=== PATIENT | female | born 1980 | race Caucasian/White ===

== ENCOUNTER 2020-08-18 12:13 | Observation (INO) | payer OTHER ==
[~2020-08-18] VITALS: Ht 174 cm; Wt 93.0 kg
[~2020-08-18 12:13] MED LIST: DSS100 PO; IBUP-2071 PO; PREN-114 PO
[2020-10-22 15:59] VITALS: BP 123/68
== END 2020-10-22 15:20 | disposition home or self-care (01) ==
LOC: 4S 10-22 12:35
PROVIDERS: ADMIT Obstetrics & Gynecology; ATTEND Obstetrics & Gynecology
DX: O46.93 Antepartum hemorrhage, unspecified, third trimester (principal); Z3A.37 37 weeks gestation of pregnancy
CPT/HCPCS: 59025; 81001; 99219

== ENCOUNTER 2020-10-23 20:45 | Observation (INO) | payer OTHER ==
[~2020-10-23] VITALS: Ht 165.1 cm; Wt 94.8 kg
[2020-10-23 21:47] VITALS: BP 125/61
== END 2020-10-23 23:21 | disposition home or self-care (01) ==
LOC: 4S 20:45
PROVIDERS: ADMIT Student in an Organized Health Care Education/Training Program; ATTEND Student in an Organized Health Care Education/Training Program
DX: O42.92 Full-term premature rupture of membranes, unspecified as to length of time between rupture and onset of labor (principal); Z3A.37 37 weeks gestation of pregnancy
CPT/HCPCS: 59025; 81001; 96360; 96361; 99219

== ENCOUNTER 2020-10-27 10:55 | Inpatient (IN) | payer OTHER ==
[~2020-10-27] VITALS: Ht 165.1 cm; Wt 93.4 kg
[~2020-10-27 10:55] MED LIST changes: -DSS100 PO; -IBUP-2071 PO
[2020-10-27] MEDS ORDERED: EPHEDrine SULFATE 50 MG/ML VIAL IM ONE ×2 (12:00)
[2020-10-27] MEDS ORDERED: OXYTOCIN 10 UNITS/ML VIAL IM ONE ×2 (12:00)
[2020-10-27] MEDS ORDERED: 0.9% SODIUM CHLORIDE 10 ML VIAL IVP ONE ×2 (12:00)
[2020-10-27] MEDS ORDERED: CefoTEtan DISODIUM 1 GM/VIAL IVP ONE (12:00)
[2020-10-27] MEDS ORDERED: RINGERS SOLUTION,LACTATED 1,000 ML IV SCH (12:45)
[2020-10-27] MEDS ORDERED: PREN-134 PO (14:44)
[2020-10-27] MEDS ORDERED: CITRIC ACID/SODIUM CITRATE 30 ML SOLUTION UDCUP PO ONE (14:45)
[2020-10-27] MEDS ORDERED: RINGERS SOLUTION,LACTATED 1,000 ML IV ONE (14:45)
[2020-10-27] MEDS ORDERED: METOCLOPRAMIDE HCL 5 MG/ML 2 ML VIAL IVP ONE (14:45)
[2020-10-27 14:46] VITALS: BP 116/65
[2020-10-27 15:43] LABS: BASOPHILS % (AUTO) 0.5 % (0.0-2.0); EOSINOPHILS % (AUTO) 1.6 % (1.0-6.0); HEMATOCRIT 35.2 % (36-46); HEMOGLOBIN 11.7 g/dL (12.0-16.0); LYMPHOCYTES # (AUTO) 1.3 K/uL (1.0-4.8); LYMPHOCYTES % (AUTO) 16.9 % (22.0-44.0); MEAN CORPUSCULAR HEMOGLOBIN 29.1 pg (26.0-34.0); MEAN CORPUSCULAR HGB CONC 33.3 G/dL (31.0-37.0); MEAN CORPUSCULAR VOLUME 87 fL (80-100); MONOCYTES # (AUTO) 0.4 K/uL (0.1-1.0); MONOCYTES % (AUTO) 5.8 % (2.0-9.0); NEUTROPHILS # (AUTO) 5.7 K/uL (1.8-7.7); NEUTROPHILS % (AUTO) 75.2 % (40.0-70.0); PLATELET COUNT (AUTO)-OB 162 K/uL (150-450); RED BLOOD CELL COUNT(AUTO) 4.03 MIL/uL (4.00-5.20); RED CELL DISTRIBUTION WIDTH 14.5 % (11.5-14.5)
[2020-10-27 15:43] LABS: COVID AG,FIA SOURCE NASOPHARYNGEAL
[2020-10-27] MEDS: ETHYL ALCOHOL 62% ANTISEPTIC NASAL INHALANT 0.6 ML AMPUL NASAL SCH (17:02)
[2020-10-27] MEDS ORDERED: MORPHINE SULFATE/PF 0.5 MG/ML 10 ML AMP ONE (19:05)
[2020-10-27] MEDS ORDERED: FentaNYL CITRATE PF 100 MCG/2 ML VIAL ONE (19:05)
[2020-10-27] MEDS ORDERED: BUPIVACAINE HCL/DEX-WATER/PF 0.75% 2 ML AMP ITH ONE (19:06)
[2020-10-27] MEDS ORDERED: ACETAMINOPHEN 1000 MG/ISO-OSM 100 ML IV ONE (19:06)
[2020-10-27] MEDS ORDERED: NALBUPHINE HCL 10 MG/ML VIAL IVP PRN ×3 (20:30)
[2020-10-27] MEDS ORDERED: NALOXONE HCL 0.4 MG/ML VIAL IVP PRN (20:30)
[2020-10-27] MEDS ORDERED: FentaNYL CITRATE PF 100 MCG/2 ML VIAL IVP PRN (20:30)
[2020-10-27] MEDS ORDERED: DiphenhydrAMINE HCL 50 MG/ML VIAL IVP PRN ×2 (20:30)
[2020-10-27] MEDS ORDERED: ONDANSETRON HCL 4 MG/2 ML VIAL IVP PRN ×2 (20:30)
[2020-10-27] MEDS ORDERED: DEXAMETHASONE SOD PHOS 4 MG/ML VIAL IVP PRN (20:30)
[2020-10-27] MEDS ORDERED: MORPHINE SULFATE 10 MG/ML SYRINGE IVP PRN (20:30)
[2020-10-27] MEDS ORDERED: ACETAMINOPHEN/CODEINE 300-30 MG TABLET PO PRN ×2 (20:45)
[2020-10-27] MEDS ORDERED: LANOLIN 7 GM OINTMENT TP PRN (20:45)
[2020-10-27] MEDS: DEXTROSE 5%-0.45% SODIUM CHL 1,000 ML IV SCH (23:17)
[2020-10-28] MEDS: DEXTROSE 5%-0.45% SODIUM CHL 1,000 ML IV SCH ×2 (03:19→08:17)
[2020-10-28] MEDS: ETHYL ALCOHOL 62% ANTISEPTIC NASAL INHALANT 0.6 ML AMPUL NASAL SCH ×2 (04:31→11:05)
[2020-10-28] MEDS: ACETAMINOPHEN 1000 MG/ISO-OSM 100 ML IV SCH ×2 (04:32→11:05)
[2020-10-28] MEDS ORDERED: OXYGEN THERAPY IH SCH ×3 (08:00)
[2020-10-28] MEDS: MAGNESIUM HYDROXIDE SUSPENSION 30 ML UDCUP PO SCH ×2 (11:05→20:06)
[2020-10-28] MEDS: IBUPROFEN 800 MG TABLET PO SCH ×2 (11:06→20:06)
[2020-10-29] MEDS: IBUPROFEN 800 MG TABLET PO SCH ×4 (01:56→18:04)
[2020-10-29] MEDS: ETHYL ALCOHOL 62% ANTISEPTIC NASAL INHALANT 0.6 ML AMPUL NASAL SCH (01:56)
[2020-10-29] MEDS: MAGNESIUM HYDROXIDE SUSPENSION 30 ML UDCUP PO SCH (21:21)
[2020-10-30] MEDS: IBUPROFEN 800 MG TABLET PO SCH ×3 (00:02→11:50)
[2020-10-30] MEDS: ETHYL ALCOHOL 62% ANTISEPTIC NASAL INHALANT 0.6 ML AMPUL NASAL SCH (00:02)
[2020-10-30] MEDS: MAGNESIUM HYDROXIDE SUSPENSION 30 ML UDCUP PO SCH (09:02)
[2020-10-30] MEDS ORDERED: IBUP-2071 PO (14:47)
== END 2020-10-30 15:45 | disposition home or self-care (01) | DRG 788 ==
LOC: 4S 10:55 → OBSVTOIN 10:55 → 4S 10-28 18:01
PROVIDERS: ADMIT Obstetrics & Gynecology; ATTEND Obstetrics & Gynecology
PROC: 10D00Z1 Extraction of Products of Conception, Low, Open Approach (ICD-10-PCS; principal; 2020-10-27)
DX: O76 Abnormality in fetal heart rate and rhythm complicating labor and delivery (principal); Z20.822 Contact with and (suspected) exposure to COVID-19; O34.211 Maternal care for low transverse scar from previous cesarean delivery; Z37.0 Single live birth; Z3A.39 39 weeks gestation of pregnancy
CPT/HCPCS: 85025; 86850; 86900; 86901; 86923; 87081; 87426; J0131; J0690; J1200; J2274; J2590; J2765; J3010; J3490; J7120